=== PATIENT | female | born 1995 | race Caucasian/White ===

== ENCOUNTER 2020-07-08 21:23 | Emergency (ER) | payer BC, SELFPAY ==
[2020-07-08 22:35] LABS: Absolute Lymphocytes (CBC) 2.7 K/uL (0.7-4.9); Basophils % 0.6 % (0-1.3); Hematocrit 37.1 % (36.0-45.0); Lymphocytes % 32.7 % (15.3-44.8); RBC Red Blood Cell Count 4.23 M/uL (3.86-4.86)
[2020-07-08 22:39] LABS: Protime INR 0.93
[2020-07-08 22:57] LABS: ALT/SGPT 63 U/L (12-78); AST/SGOT 46 U/L (15-37); Albumin 3.6 g/dL (3.4-5.0); Alkaline Phosphatase 100 U/L (45-117); BUN Blood Urea Nitrogen 9 mg/dL (7-18); Bicarbonate 30 mmol/L (21-32); Bilirubin Direct < 0.1 mg/dL (0-0.2); Bilirubin Total 0.2 mg/dL (0.2-1.0); Glucose Level 117 mg/dL (74-106); Potassium 3.7 mmol/L (3.5-5.1); Protein, Total 7.5 g/dL (6.4-8.2); Sodium Level 139 mmol/L (136-145)
[2020-07-08] MEDS ORDERED: NA CHLORIDE 0.9% 1,000 ML ONE (23:40)
--- NOTE | 2020-07-09 00:31 | EDPHYS ---
Physician Documentation [facility] Name: Kati Le Age: 25 yrs Sex: Female : 1995 Arrival Date: 07/08/2020 Time: 21:28 Bed 5 Private MD: ED Physician Arielle Soni HPI: 07/08 22:47 This 25 yrs old Female presents to ER via Wheelchair with complaints of ma2 Possible Overdose. 22:47 Context: Previous OD/poisoning history: none. Associated signs and symptoms: Pertinent ma2 negatives: burning of skin, diaphoresis, diarrhea. Severity of symptoms: At their worst the symptoms were moderate in the emergency department the symptoms are unchanged. The patient has not experienced similar symptoms in the past. has been having dental pain, went to dentist today and exam and xr was wnl. she was given t4, she took 5 of them in the evening (unknown time) 300 mg each, she also took few methadona dn 3 motrin 400 mg .. has no symptoms now except dental pain . Historical: - Allergies: 21:41 No Known Allergies; ll1 - PMHx: 21:41 None; ll1 - PSHx: 21:41 None; ll1 - Immunization history:: Flu vaccine is not up to date. - Social history:: Smoking status: Patient reports the use of cigarette tobacco products, smokes one pack cigarettes per day. Patient uses alcohol, on a daily basis. - Family history:: not pertinent. ROS: 22:47 Constitutional: Negative for fever, chills, and weight loss. ma2 22:47 All other systems are negative. Exam: 22:47 Constitutional: This is a well developed, well nourished patient who is awake, alert, ma2 and in no acute distress. Head/Face: Normocephalic, atraumatic. Eyes: Pupils equal round and reactive to light, extra-ocular motions intact. Lids and lashes normal. Conjunctiva and sclera are non-icteric and not injected. Cornea within normal limits. Periorbital areas with no swelling, redness, or edema. ENT: Nares patent. No nasal discharge, no septal abnormalities noted. Tympanic membranes are normal and external auditory canals are clear. Oropharynx with no redness, swelling, or masses, exudates, or evidence of obstruction, uvula midline. Mucous membranes moist. Neck: Trachea midline, no thyromegaly or masses palpated, and no cervical lymphadenopathy. Supple, full range of motion without nuchal rigidity, or vertebral point tenderness. No Meningismus. Chest/axilla: Normal chest wall appearance and motion. Nontender with no deformity. No lesions are appreciated. Cardiovascular: Regular rate and rhythm with a normal S1 and S2. No gallops, murmurs, or rubs. Normal PMI, no JVD. No pulse deficits. Respiratory: Lungs have equal breath sounds bilaterally, clear to auscultation and percussion. No rales, rhonchi or wheezes noted. No increased work of breathing, no retractions or nasal flaring. Abdomen/GI: Soft, non-tender, with normal bowel sounds. No distension or tympany. No guarding or rebound. No evidence of tenderness throughout. Back: No spinal tenderness. No costovertebral tenderness. Full range of motion. Skin: Warm, dry with normal turgor. Normal color with no rashes, no lesions, and no evidence of cellulitis. MS/ Extremity: Pulses equal, no cyanosis. Neurovascular intact. Full, normal range of motion. Neuro: Awake and alert, GCS 15, oriented to person, place, time, and situation. Cranial nerves II-XII grossly intact. Motor strength 5/5 in all extremities. Sensory grossly intact. Cerebellar exam normal. Normal gait. Vital Signs: 21:41 BP 119 / 88; Pulse 60; Resp 17; Temp 98.5; Pulse Ox 96% ; Weight 108.86 kg; Height 5 ll1 ft. (152.40 cm); Pain 9/10; 22:30 BP 122 / 74; Pulse 89; Resp 16; Pulse Ox 98% on R/A; jb4 23:30 BP 120 / 88; Pulse 89; Resp 18; Pulse Ox 98% on R/A; jb4 21:41 Body Mass Index 46.87 (108.86 kg, 152.40 cm) ll1 MDM: 21:46 Patient medically screened. ma2 22:47 Differential diagnosis: Ingestion/exposure to tylenol polypharmacy, over medication, ma2 hypoglycemia. 07/09 00:28 Data reviewed: vital signs, nurses notes. Counseling: I had a detailed discussion with ma2 the patient and/or guardian regarding: the historical points, exam findings, and any diagnostic results supporting the discharge/admit diagnosis, the presence of at least one elevated blood pressure reading (>120/80) during this emergency department visit. Response to treatment: the patient's symptoms have markedly improved after treatment. 07/08 21:46 Order name: Acetaminophen [facility] 07/08 21:46 Order name: Basic Metabolic Panel [facility] 07/08 21:46 Order name: CBC with Diff [facility] 07/08 21:46 Order name: ETOH Level [facility] 07/08 21:46 Order name: Hepatic Function [facility] 07/08 21:46 Order name: PT-INR; Complete Time: 00:17 [facility] 07/08 21:46 Order name: Ptt, Activated; Complete Time: 00:17 [facility] 07/08 21:46 Order name: Salicylate; Complete Time: 00:17 dc2 07/08 21:46 Order name: Urine Drug Screen [facility] 07/08 21:47 Order name: Acetaminophen Level; Complete Time: 00:17 EDWA 07/08 21:47 Order name: Basic Metabolic Panel; Complete Time: 00:17 EDWA 07/08 21:47 Order name: CBC with Automated Diff; Complete Time: 00:17 EDMS 07/08 21:47 Order name: Alcohol Serum/Plasma; Complete Time: 00:17 [facility] 07/08 21:47 Order name: Liver (Hepatic) Function; Complete Time: 00:17 EDWA 07/08 21:46 Order name: EKG; Complete Time: 21:47 dc2 07/08 21:46 Order name: EKG - Nurse/Tech; Complete Time: 00:13 [facility] 07/08 21:46 Order name: IV Saline Lock; Complete Time: 00:14 [facility] 07/08 21:46 Order name: Labs collected and sent; Complete Time: 00:14 [facility] 07/08 21:46 Order name: Urine Dipstick-Ancillary (obtain specimen); Complete Time: 00:14 [facility] 07/08 22:24 Order name: Test, Serum; Complete Time: 00:17 dc2 07/09 00:14 Order name: Urine Dipstick--Ancillary (enter results) 2 07/09 00:14 Order name: Urine --Ancillary (enter results) 2 Administered Medications: 07/08 23:15 Drug: NS 0.9% 1000 ml Route: IV; Rate: 1 bolus; Site: right antecubital; jb4 07/09 00:00 Follow up: IV Status: Completed infusion; IV Intake: 1000ml jb4 Disposition: 07/09/20 00:31 Discharged to Home. Impression: Encounter for therapeutic drug level monitoring. - Condition is Stable. - Discharge Instructions: Alcohol Intoxication, [id number]. - Work release form, Medication Reconciliation Form, Thank You Letter, Antibiotic Education, Prescription Opioid Use form. - Follow up: Private Physician; When: Tomorrow; Reason: Continuance of care. Signatures: Dispatcher [employer] EDScott Read RN RN jb4 Arielle Soni MD MD ma2 Braeden Mcclain RN RN ll1 Corrections: (The following items were deleted from the chart) 07/08 22:53 21:46 Urine Test ordered. [email or web address] jb4 07/09 00:58 00:31 07/09/2020 00:31 Discharged to Home. Impression: Encounter for therapeutic drug jb4 level monitoring. Condition is Stable. Forms are Medication Reconciliation Form, Thank You Letter, Antibiotic Education, Prescription Opioid Use. Follow up: Private Physician; When: Tomorrow; Reason: Continuance of care. ma2
--- NOTE | 2020-07-09 00:31 | ER ---
Nurse's Notes [facility] Name: Kati Le Age: 25 yrs Sex: Female : 1995 Arrival Date: 07/08/2020 Time: 21:28 Bed 5 Private MD: Diagnosis: Encounter for therapeutic drug level monitoring Presentation: 07/08 21:41 Chief complaint: Patient states: Took Tylenol #3 (5 pills today), 5 large beers, 2 ll1 melatonin, and 2.5 pills of her methadone. Slurring words, but answering appropriately. States she is not suicidal. She just wanted her tooth to stop hurting. Tooth pain to left lower jaw for 2.5 weeks. Coronavirus screen: Client denies travel out of the [place] in the last 14 days. At this time, the client does not indicate any symptoms associated with coronavirus-19. Ebola Screen: Patient denies travel to an Ebola-affected area in the 21 days before illness onset. Initial Sepsis Screen: Does the patient meet any 2 criteria? No. Patient's initial sepsis screen is negative. Does the patient have a suspected source of infection? Yes: Other: tooth pain, Left lower jaw. Risk Assessment: Do you want to hurt yourself or someone else? Patient reports no desire to harm self or others. Onset of symptoms was July 08, 2020. 21:41 Method Of Arrival: Wheelchair ll1 21:41 Acuity: FREEMAN 2 ll1 Historical: - Allergies: 21:41 No Known Allergies; ll1 - PMHx: 21:41 None; ll1 - PSHx: 21:41 None; ll1 - Immunization history:: Flu vaccine is not up to date. - Social history:: Smoking status: Patient reports the use of cigarette tobacco products, smokes one pack cigarettes per day. Patient uses alcohol, on a daily basis. - Family history:: not pertinent. Screenin:00 Abuse screen: Denies threats or abuse. Nutritional screening: No deficits noted. jb4 Tuberculosis screening: No symptoms or risk factors identified. Fall Risk IV access (20 points). Gait- Impaired (20 pts.). Total Matias Fall Scale indicates Low Risk Score (25-44 pts). Fall prevention measures have been instituted. Side Rails Up X 2 Placed close to Nursing Station Frequent Obs/Assesments occuring Family Present and informed to notify staff if they need to leave bedside As available Patient and Family Educated on Fall Prevention Program and strategies. Assessment: 22:00 General: Appears in no apparent distress. comfortable, Behavior is calm, cooperative, jb4 appropriate for age. Pain: Denies pain. Neuro: Level of Consciousness is awake, obeys commands, lethargic, Oriented to person, place, time, situation. Cardiovascular: Patient's skin is warm and dry. Respiratory: Airway is patent Respiratory effort is even, unlabored, Respiratory pattern is regular, symmetrical. GI: No signs and/or symptoms were reported involving the gastrointestinal system. : No signs and/or symptoms were reported regarding the genitourinary system. EENT: No signs and/or symptoms were reported regarding the EENT system. Derm: Skin is intact, Skin is pink, warm \T\ dry. Musculoskeletal: Circulation, motion, and sensation intact. Range of motion: intact in all extremities. 23:00 Reassessment: Patient appears in no apparent distress at this time. Patient and/or jb4 family updated on plan of care and expected duration. Pain level reassessed. Patient is alert, oriented x 3, equal unlabored respirations, skin warm/dry/pink. 07/09 00:00 Reassessment: Patient appears in no apparent distress at this time. Patient and/or jb4 family updated on plan of care and expected duration. Pain level reassessed. Patient is alert, oriented x 3, equal unlabored respirations, skin warm/dry/pink. 00:39 Reassessment: Patient appears in no apparent distress at this time. Patient and/or jb4 family updated on plan of care and expected duration. Pain level reassessed. Patient is alert, oriented x 3, equal unlabored respirations, skin warm/dry/pink. Patient states feeling better. Vital Signs: 07/08 21:41 BP 119 / 88; Pulse 60; Resp 17; Temp 98.5; Pulse Ox 96% ; Weight 108.86 kg; Height 5 ll1 ft. (152.40 cm); Pain 02/06; 22:30 BP 122 / 74; Pulse 89; Resp 16; Pulse Ox 98% on R/A; jb4 23:30 BP 120 / 88; Pulse 89; Resp 18; Pulse Ox 98% on R/A; jb4 21:41 Body Mass Index 46.87 (108.86 kg, 152.40 cm) ll1 ED Course: 21:28 Patient arrived in ED. am4 21:39 Arm band placed on. ll1 21:45 Triage completed. ll1 21:46 Arielle Soni MD is Attending Physician. nj2 21:58 Scott Baldwin, RN is Primary Nurse. jb4 22:00 Patient has correct armband on for positive identification. Placed in gown. Bed in low jb4 position. Call light in reach. Side rails up X 1. pvc monitor on. Pulse ox on. NIBP on. 22:15 Initial lab(s) drawn. Inserted saline lock: 18 gauge in right antecubital area, using jb4 aseptic technique. Blood collected. 02 00:50 No provider procedures requiring assistance completed. IV discontinued, intact, jb4 bleeding controlled, No redness/swelling at site. Pressure dressing applied. Administered Medications: 07/08 23:15 Drug: NS 0.9% 1000 ml Route: IV; Rate: 1 bolus; Site: right antecubital; jb4 07/09 00:00 Follow up: IV Status: Completed infusion; IV Intake: 1000ml jb4 Intake: 00:00 IV: 1000ml; Total: 1000ml. jb4 Outcome: 00:31 Discharge ordered by . nj2 00:50 Discharged to home via wheelchair, with family. jb4 00:50 Condition: stable 00:50 Discharge instructions given to patient, family, Instructed on discharge instructions, follow up and referral plans. Demonstrated understanding of instructions, follow-up care. 00:58 Patient left the ED. jb4 Signatures: Scott Baldwin, RN RN jb4 Arielle Soni MD MD [facility] Braeden Mcclain RN RN [email or web address] Anabel Castaneda am4
[2020-07-09 00:38] LABS: Urine Blood TRACE (NEG); Urine Glucose NEGATIVE (NEG); Urine Protein NEGATIVE (NEG); Urine Specific Gravity 1.025 (1.005-1.030)
[2020-07-09 00:48] LABS: Barbiturates NEGATIVE (NEGATIVE); Benzodiazepines POSITIVE (NEGATIVE); Cocaine NEGATIVE (NEGATIVE); METHAMPHETAM NEGATIVE (NEGATIVE); Methadone POSITIVE (NEGATIVE); Opiates POSITIVE (NEGATIVE); Phencyclidine NEGATIVE (NEGATIVE); THC Cannibis NEGATIVE (NEGATIVE)
[2020-07-09 01:04] VITALS: TEMP 98.5
[2020-07-09 01:05] VITALS: O2SAT 98
[2020-07-09 01:06] VITALS: BP 120/88
--- NOTE | 2020-07-09 11:54 | EKG ---
Test Date: 2020-07-08 Test Time: 22:36:08 Floor Hand: ELOY MEASUREMENT RESULTS: Intervals: Rate: 87 WA: 150 QRSD: 90 QT: 382 QTc: 459 [place]: P: 41 WA: 150 QRS: 69 T: 49 INTERPRETIVE STATEMENTS: Normal sinus rhythm Normal ECG No previous ECG available for comparison Electronically Signed On 07-09-20 11:53:19 BUS AND RAIL OPERATOR by Raj Stahl
== END 2020-07-09 00:58 | disposition home or self-care (01) ==
LOC: ER 21:23
DX: Z51.81 Encounter for therapeutic drug level monitoring (principal); F17.210 Nicotine dependence, cigarettes, uncomplicated; K08.89 Other specified disorders of teeth and supporting structures
CPT/HCPCS: 36415; 80048; 80076; 80307; 80320; 80329; 81003; 81025; 84703; 85025; 85610; 85730; 93005; 96360; 99284; J7030

== ENCOUNTER 2020-07-12 13:42 | Emergency (ER) | payer SELFPAY ==
--- NOTE | 2020-07-12 14:18 | ER ---
Nurse's Notes [facility] Name: Kati Le Age: 25 yrs Sex: Female : 1995 Arrival Date: 07/12/2020 Time: 13:47 Bed 13 Private MD: Diagnosis: Foreign body in vulva and vagina-encounter for exam for fear of Presentation: 07/12 13:49 Chief complaint: Patient states: States she believes she has had a tampon in for 6 ll1 days. Has had vaginal discharge and bleeding for 4 days. No fever. + cramping. Coronavirus screen: Client denies travel out of the [place] in the last 14 days. At this time, the client does not indicate any symptoms associated with coronavirus-19. Ebola Screen: Patient denies travel to an Ebola-affected area in the 21 days before illness onset. Initial Sepsis Screen: Does the patient meet any 2 criteria? HR > 90 bpm. No. Patient's initial sepsis screen is negative. Does the patient have a suspected source of infection? Yes: Other: Foreign body vaginal area. Risk Assessment: Do you want to hurt yourself or someone else? Patient reports no desire to harm self or others. Onset of symptoms was July 07, 2020. 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 - Social history:: Smoking status: Patient reports the use of cigarette tobacco products, smokes one-half pack cigarettes per day. Screenin:10 Abuse screen: Denies threats or abuse. Nutritional screening: No deficits noted. vg1 Tuberculosis screening: No symptoms or risk factors identified. Fall Risk No fall in past 12 months (0 pts). No secondary diagnosis (0 pts). No IV (0 pts). Ambulatory Aid- None/Bed Rest/Nurse Assist (0 pts). Gait- Normal/Bed Rest/Wheelchair (0 pts) Mental Status- Oriented to own ability (0 pts). Total Matias Fall Scale indicates No Risk (0-24 pts). Assessment: 14:00 General: Appears in no apparent distress. comfortable, Behavior is calm, cooperative. vg1 Pain: Denies pain. Neuro: Level of Consciousness is awake, alert, obeys commands, Oriented to person, place, time, situation. Cardiovascular: Patient's skin is warm and dry. Respiratory: Airway is patent Respiratory effort is even, unlabored, Respiratory pattern is regular, symmetrical. GI: No signs and/or symptoms were reported involving the gastrointestinal system. : No signs and/or symptoms were reported regarding the genitourinary system. EENT: No signs and/or symptoms were reported regarding the EENT system. Derm: Skin is intact, is healthy with good turgor. Musculoskeletal: Circulation, motion, and sensation intact. 14:00 General: Reports 4 days ago had brownish discharge and began bleeding today. Denies vg1 pain but states has discomfort in vagina. Vital Signs: 13:49 BP 150 / 90; Pulse 92; Resp 17; Temp 97.0; Pulse Ox 98% ; Weight 108.86 kg; Height 5 ll1 ft. 7 in. (170.18 cm); Pain 0/10; 14:00 BP 128 / 77; Pulse 90; Resp 14; Pulse Ox 100% on R/A; vg1 13:49 Body Mass Index 37.59 (108.86 kg, 170.18 cm) ll1 ED Course: 13:47 Patient arrived in ED. mr 13:49 Arm band placed on Patient placed in an exam room, on a stretcher. ll1 13:51 Triage completed. ll1 13:51 Carmen Smith FNP-C is [facility]. kb 13:51 Roland Yun MD is Attending Physician. kb 14:00 Ricarda Chung, RN is Primary Nurse. vg1 14:10 Patient has correct armband on for positive identification. Placed in gown. Bed in low vg1 position. Call light in reach. Side rails up X 1. 14:27 Assist provider with pelvic exam: Performed by Carmen AGUIRRE. Patient did not vg1 have IV access during this emergency room visit. Administered Medications: No medications were administered Outcome: 14:17 Discharge ordered by . moni 14:27 Discharged to home ambulatory. vg1 14:27 Condition: stable 14:27 Discharge instructions given to patient, Instructed on discharge instructions, follow up and referral plans. Demonstrated understanding of instructions, follow-up care. 14:27 Patient left the ED. vg1 Signatures: Carmen Smith FNP-C FNP-Kamila Dow Victoria, RN RN vg1 Braeden Mcclain RN RN ll1 Corrections: (The following items were deleted from the chart) 13:52 13:49 Acuity: FREEMAN 3 ll1 ll1
--- NOTE | 2020-07-12 14:18 | EDPHYS ---
Physician Documentation [facility] Name: Kati Le Age: 25 yrs Sex: Female : 1995 Arrival Date: 07/12/2020 Time: 13:47 Bed 13 Private MD: ED Physician Roland Yun HPI: 07/12 14:53 This 25 yrs old Female presents to ER via Ambulatory with complaints of kb Foreign body In Vagina. 14:53 The patient presents with vaginal bleeding that is vaginal discharge, possible tampon kb stuck in vagina for 6 days. Onset: The symptoms/episode began/occurred yesterday. Modifying factors: The symptoms are alleviated by nothing, the symptoms are aggravated by nothing. Associated signs and symptoms: Pertinent positives: vaginal bleeding, vaginal discharge. Severity of symptoms: At their worst the symptoms were mild, in the emergency department the symptoms are unchanged. The patient has not experienced similar symptoms in the past. The patient has not recently seen a physician. 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 - Social history:: Smoking status: Patient reports the use of cigarette tobacco products, smokes one-half pack cigarettes per day. ROS: 14:52 Constitutional: Negative for fever, chills, and weight loss, Abdomen/GI: Negative for kb abdominal pain, nausea, vomiting, diarrhea, and constipation, Neuro: Negative for headache, weakness, numbness, tingling, and seizure. 14:52 : Positive for vaginal bleeding, vaginal discharge. Exam: 14:53 Constitutional: This is a well developed, well nourished patient who is awake, alert, kb and in no acute distress. Head/Face: Normocephalic, atraumatic. Abdomen/GI: Soft, non-tender, with normal bowel sounds. No distension or tympany. No guarding or rebound. No evidence of tenderness throughout. Pelvic Exam: Normal external genitalia. Speculum exam with closed cervical os, no discharge or bleeding noted. Bimanual exam with normal adnexa, no adnexal or cervical motion tenderness. Normal uterus. Female : Normal external genitalia. Skin: Warm, dry with normal turgor. Normal color with no rashes, no lesions, and no evidence of cellulitis. Neuro: Awake and alert, GCS 15, oriented to person, place, time, and situation. Cranial nerves II-XII grossly intact. Motor strength 5/5 in all extremities. Sensory grossly intact. Cerebellar exam normal. Normal gait. Vital Signs: 13:49 BP 150 / 90; Pulse 92; Resp 17; Temp 97.0; Pulse Ox 98% ; Weight 108.86 kg; Height 5 ll1 ft. 7 in. (170.18 cm); Pain 0/10; 14:00 BP 128 / 77; Pulse 90; Resp 14; Pulse Ox 100% on R/A; vg1 13:49 Body Mass Index 37.59 (108.86 kg, 170.18 cm) ll1 MDM: 13:51 Patient medically screened. kb 14:52 Data reviewed: vital signs, nurses notes. Data interpreted: Pulse oximetry: on room air kb is 100 %. Interpretation: normal. Counseling: I had a detailed discussion with the patient and/or guardian regarding: the historical points, exam findings, and any diagnostic results supporting the discharge/admit diagnosis, the need for outpatient follow up, a family practitioner, to return to the emergency department if symptoms worsen or persist or if there are any questions or concerns that arise at home. Administered Medications: No medications were administered Disposition: 07/12/20 14:17 Discharged to Home. Impression: Foreign body in vulva and vagina - encounter for exam for fear of. - Condition is Stable. - Discharge Instructions: Vaginal Foreign Body, [id number]. - Medication Reconciliation Form, Thank You Letter, Antibiotic Education, Prescription Opioid Use form. - Follow up: Emergency Department; When: As needed; Reason: Worsening of condition. Follow up: Private Physician; When: 2 - 3 days; Reason: Recheck today's complaints, Continuance of care, Re-evaluation by your physician. Addendum: 07/13/2020 14:44 Co-signature as Attending Physician, Roland Yun MD I agree with the assessment and c gomez plan of care. Signatures: Carmen Smith, SHERLY-C HEEL LAYER-Roland Escobar MD MD cha Garcia, Victoria RN RN 1 Johny, Lynsay, RN RN ll1 Corrections: (The following items were deleted from the chart) 07/12 14:27 14:17 07/12/2020 14:17 Discharged to Home. Impression: Foreign body in vulva and vagina vg1 - encounter for exam for fear of. Condition is Stable. Forms are Medication Reconciliation Form, Thank You Letter, Antibiotic Education, Prescription Opioid Use. Follow up: Emergency Department; When: As needed; Reason: Worsening of condition. Follow up: Private Physician; When: 2 - 3 days; Reason: Recheck today's complaints, Continuance of care, Re-evaluation by your physician. kb 14:53 14:53 Constitutional: This is a well developed, well nourished patient who is awake, kb alert, and in no acute distress. Head/Face: Normocephalic, atraumatic. Abdomen/GI: Soft, non-tender, with normal bowel sounds. No distension or tympany. No guarding or rebound. No evidence of tenderness throughout. Skin: Warm, dry with normal turgor. Normal color with no rashes, no lesions, and no evidence of cellulitis. Neuro: Awake and alert, GCS 15, oriented to person, place, time, and situation. Cranial nerves II-XII grossly intact. Motor strength 5/5 in all extremities. Sensory grossly intact. Cerebellar exam normal. Normal gait. kb
[2020-07-12 14:34] VITALS: TEMP 97
[2020-07-12 14:35] VITALS: BP 128/77; O2SAT 100
== END 2020-07-12 14:27 | disposition home or self-care (01) ==
LOC: ER 13:42
DX: Z71.1 Person with feared health complaint in whom no diagnosis is made (principal); F17.210 Nicotine dependence, cigarettes, uncomplicated
CPT/HCPCS: 99283

== ENCOUNTER 2022-04-23 17:59 | Emergency (ER) | payer OTHER, SELFPAY ==
--- OUTSIDE RECORDS SUMMARY | 2022-04-23 18:02 | XMS REPORT | Continuity of Care Document ---
:1995 Author Organization [facility] Address [address] [place] [address] Care Team Providers Name Role Phone Alexander Renee Primary Care Physician MICHAELLE ALVAREZ Attending Clinician Unavailable MICHAELLE ALVAREZ Attending Clinician Unavailable ZAN SALAZAR Attending Clinician Unavailable HARLEY GRAVES Attending Clinician Unavailable Doctor Unassigned, [place] Attending Clinician Unavailable [email or web address] Attending Clinician Unavailable Perez_J Admitting Clinician Unavailable Payers Payer Name Policy Type Policy Number Effective Date Expiration Date Susana moore Douban [id number] 2021 00:00:00 [facility] [id number] 2021 (PPO) 00:00:00 Problems Condition Condition Condition Status Onset Resolution Last Treating Co mments Source Name Details Category Date Date Treatment Clinician Date PCOS PCOS Disease Active 2021-05 Univers (polycysti (polycysti 06-04 [place] c ovarian c [place] syndrome[place] syndrome[place] 00 [facility] Branch Female Female Disease Active 2021-05 Univers infertilit infertilit 06-04 it y of y y 00:00: [place] associated associated 00 Me dical with with Branch anovulatio anovulatio n n Hirsutism Hirsutism Disease Active 2021-05 Uni vers 06-04 ity of 00:00: [place] 00 Medical Branch Insomnia, Insomnia, Disease Active 2021-05 Uni vers unspecifie unspecifie 06-04 it y of d type d type 00:00: [place] 00 Medical Branch Menorrhagi Menorrhagi Disease Active 2021-05 U nivers a with a with 1-06 [place] of irregular irregular [place] cycle 00 [facility] Encounter Encounter Disease Active 2021-05 Uni vers for well for well 0-13 ity of [place] exam [place] routine routine Branch gynecologi gynecologi jake exam jake exam Vaginal Vaginal Disease Active 2021-05 Univers discharge discharge 0-13 ity of 00:00: [facility] Breast Breast Disease Active 2021-05 Univers lump in lump in 0-13 ity of female female 00:00: [facility] History of History of Disease Active 2021-05 U nivers ovarian ovarian 0-13 ity of cyst cyst 00:00: [facility] BMI BMI Disease Active 2021-05 Univers 40.0-44.9, 40.0-44.9, 0-13 it y of adult adult 00:00: [address] Acute Acute Problem Active Common vaginitis vaginitis Spir it [facility] Chlamydia Chlamydia Diagnosis Active C ommon contact contact [facility] Dysuria Dysuria Diagnosis Active Commo n [facility] Encounter Encounter Problem Active Com mon for for Spirit screening screening - CH I for for St infections infections Jessica kes with with Medical predominan predominan Ce nter tly sexual tly sexual mode of mode of transmissi transmissi on on Allergies, Adverse Reactions, Alerts Allergy Allergy Status Severity Reaction(s) Onset Inactive Treating Comm ents Source Name Type Date Date Clinician NO KNOWN Drug Active Univers ALLERGIE Class ity of [facility] Social History Social Habit Start Date Stop Date Quantity Comments Source Alcohol intake 2022-04-04 2022-04-04 Lifetime University of 00:00:00 00:00:00 non-drinker [facility] (finding) [place] Exposure to 2022-03-05 2022-03-15 Not sure [facility] SARS-CoV-2 00:00:00 08:28:00 [facility] (event) [place] Tobacco use and 2022-03-11 2022-03-11 Smokeless tobacco Un iversity of exposure 00:00:00 00:00:[address] [facility] Sex Assigned At [birth year] Universit y of 00:00:00 00:00:00 [place] [facility] [place] Smoking Status Start Date Stop Date Source Tobacco smoking consumption [facility] Branch Never smoked tobacco [facility] Medications Ordered Filled Start Stop Current Ordering Indication Dosage Frequency Signature Comments Components Source Medication Medication Date Date Medication? Clinician (SIG) Name Name LOHASMUKH SANTOS 2021-05 Yes [id number] 1{tbl} Take 1 Univers (BLISOVI FE 1-06 tablet by ity of ,) 00:00: mouth in [place] 1 mg-20 mcg 00 the Medical (21)/75 mg morning. Branc h (7) tablet LOESTRIN FE 2021-05 Yes [id number] 1{tbl} Take 1 Univers (BLISOVI FE 1-06 tablet by ity of ,) 00:00: mouth in [place] 1 mg-20 mcg 00 the Medical (21)/75 mg morning. Branc h (7) tablet LOESTRIN FE 2021-05 Yes [id number] 1{tbl} Take 1 Univers (BLISOVI FE 1-06 tablet by ity of ,) 00:00: mouth in [place] 1 mg-20 mcg 00 the Medical (21)/75 mg morning. Branc h (7) tablet LOESTRIN FE 2021-05 Yes [id number] 1{tbl} Take 1 Univers (BLISOVI FE 1-06 tablet by ity of ,) 00:00: mouth in [place] 1 mg-20 mcg 00 the Medical (21)/75 mg morning. Branc h (7) tablet metroNIDAZO 2021-05- Yes [id number] 500mg Take 1 Univers LE 500 mg 0-17 10-25 tablet by ity of tablet 00:00: 04:59 mouth [place] 00 :00 every 12 Medical (twelve) Branch hours for 7 days. metroNIDAZO 2021-05- Yes [id number] 500mg Take 1 Univers LE 500 mg 0-17 10-25 tablet by ity of tablet 00:00: 04:59 mouth [place] 00 :00 every 12 Medical (twelve) Branch hours for 7 days. metroNIDAZO 2021-05- Yes [id number] 500mg Take 1 Univers LE 500 mg 0-17 10-25 tablet by ity of tablet 00:00: 04:59 mouth [place] 00 :00 every 12 Medical (twelve) Branch hours for 7 days. metroNIDAZO 2021-05- Yes [id number] 500mg Take 1 Univers LE 500 mg 0-17 10-25 tablet by ity of tablet 00:00: 04:59 mouth [place] 00 :00 every 12 Medical (twelve) Branch hours for 7 days. metroNIDAZO 2021-05- Yes [id number] 500mg Take 1 Univers LE 500 mg 0-17 10-25 tablet by ity of tablet 00:00: 04:59 mouth [place] 00 :00 every 12 Medical (twelve) Branch hours for 7 days. metroNIDAZO 2021-05- Yes [id number] 500mg Take 1 Univers LE 500 mg 0-17 10-25 tablet by ity of tablet 00:00: 04:59 mouth [place] 00 :00 every 12 Medical (twelve) Branch hours for 7 days. QUEtiapine 2021-05 Yes 1{tbl} Take 1 Uni vers (SEROQUEL) 0-13 tablet by ity of 300 mg 13:44: mouth. [address] QUEtiapine 2021-05 Yes 1{tbl} Take 1 Uni vers (SEROQUEL) 0-13 tablet by ity of 300 mg 13:44: mouth. [address] QUEtiapine 2021-05 Yes 1{tbl} Take 1 Uni vers (SEROQUEL) 0-13 tablet by ity of 300 mg 13:44: mouth. [address] QUEtiapine 2021-05 Yes 1{tbl} Take 1 Uni vers (SEROQUEL) 0-13 tablet by ity of 300 mg 13:44: mouth. [address] QUEtiapine 2021-05 Yes 1{tbl} Take 1 Uni vers (SEROQUEL) 0-13 tablet by ity of 300 mg 13:44: mouth. [address] QUEtiapine 2021-05 Yes 1{tbl} Take 1 Uni vers (SEROQUEL) 0-13 tablet by ity of 300 mg 13:44: mouth. [address] QUEtiapine 2021-05 Yes 1{tbl} Take 1 Uni vers (SEROQUEL) 0-13 tablet by ity of 300 mg 13:44: mouth. [place] tablet 24 Medical Branch QUEtiapine 2021-05 Yes 1{tbl} Take 1 Uni vers (SEROQUEL) 0-13 tablet by ity of 300 mg 13:44: mouth. [place] tablet 24 Medical Branch QUEtiapine 2021-05 Yes 1{tbl} Take 1 Uni vers (SEROQUEL) 0-13 tablet by ity of 300 mg 13:44: mouth. [place] tablet 24 Medical Branch QUEtiapine 2021-05 Yes 1{tbl} Take 1 Uni vers (SEROQUEL) 0-13 tablet by ity of 300 mg 13:44: mouth. [place] tablet 24 Medical Branch QUEtiapine 2021-05 Yes 1{tbl} Take 1 Uni vers (SEROQUEL) 0-13 tablet by ity of 300 mg 13:44: mouth. [place] tablet 24 Medical Branch QUEtiapine 2021-05 Yes 1{tbl} Take 1 Uni vers (SEROQUEL) 0-13 tablet by ity of 300 mg 13:44: mouth. [place] tablet 24 Medical Branch QUEtiapine 2021-05 Yes 1{tbl} Take 1 Uni vers (SEROQUEL) 0-13 tablet by ity of 300 mg 13:44: mouth. [place] tablet 24 Medical Branch QUEtiapine 2021-05 Yes 1{tbl} Take 1 Uni vers (SEROQUEL) 0-13 tablet by ity of 300 mg 13:44: mouth. [place] tablet [address] [place] [address] Azithromyci Azithromyci 2017-0 2018- No Toribio 2 tablet s Common n n 09-20 [facility] 00:00: 00:00 - [facility] 00 :00 [facility] Flagyl Flagyl Yes Toribio 1 tablet Co mmon Stefanyi [facility] - [facility] Vital Signs Vital Name Observation Time Observation Value Comments Source Systolic blood 2022-04-01 17:54:00 126 mm[Hg] Univer sity of pressure [facility] Diastolic blood 2022-04-01 17:54:00 81 mm[Hg] Unive rsity of pressure [facility] Heart rate 2022-04-01 17:54:00 84 /min Universi ty of [facility] Body temperature 2022-04-01 17:54:00 36.89 Ivelisse [facility] ersity of [place] [facility] [place] Respiratory rate 2022-04-01 17:54:00 16 /min Univ ersity of [facility] [place] [facility] [place] Body height 2022-04-01 17:54:00 165.1 cm Universi ty of [facility] [place] [facility] [place] Body weight 2022-04-01 17:54:00 119.886 kg Universi ty of [facility] [place] BMI 2022-04-01 17:54:00 43.98 kg/m2 Universi ty of [place] [facility] [place] Oxygen saturation in 2022-04-01 17:54:00 98 /min University of Arterial blood by [facility] Pulse oximetry Branch Systolic blood 2022-03-11 18:43:00 119 mm[Hg] Univer sity of [facility] Diastolic blood 2022-03-11 18:43:00 83 mm[Hg] [facility] Heart rate 2022-03-11 18:43:00 87 /min Universi ty of [place] [facility] [place] Body temperature 2022-03-11 18:43:00 36.72 Ivelisse [facility] ersity of [place] [facility] [place] Respiratory rate 2022-03-11 18:43:00 16 /min [facility] ersity of [place] [facility] [place] Body height 2022-03-11 18:43:00 165.1 cm Universi ty of [place] [facility] [place] Body weight 2022-03-11 18:43:00 116.529 kg Universi ty of [place] [facility] BMI 2022-03-11 18:43:00 42.75 kg/m2 Universi ty of [place] [facility] [place] Oxygen saturation in 2022-03-11 18:43:00 96 /min University of Arterial blood by [facility] Pulse oximetry Branch Procedures Procedure Date / Time Performing Clinician Source Performed EXTERNAL PROVIDER 2022-04-21 06:01:00 Doctor Unassigned, No Univ [facility] RECORDS Name Medical Branch BI US GUIDED CORE 2022-04-01 15:31:04 Michaelle Alvarez [facility] BREAST BIOPSY RIGHT Medical Bran ch US PELVIS COMPLETE WITH 2022-03-18 19:00:00 Michaelle Alvarez [facility] TRANSVAGINAL [facility] BI ULTRASOUND BREAST 2022-03-18 16:56:11 Michaelle Alvarez [facility] COMPLETE RIGHT Medical Branch CONSENT/REFUSAL FOR 2022-03-11 18:15:29 Doctor Unassigned, No [facility] DIAGNOSIS AND TREATMENT Name [facility] ASSIGNMENT OF BENEFITS 2022-03-11 18:15:14 Doctor Unassigned, No [facility] Name [facility] Encounters Start End Encounter Admission Attending Care Care Encounter Source Date/Time Date/Time Type Type Clinicians Facility Department ID 2022-04-26 2022-04-26 Outpatient R ELY [facility] [id number] Univers 15:15:00 15:15:[address] [facility] 2022-04-21 2022-04-21 Orders Doctor JUAREZ 1.2.840.114 [id number] Univers 00:00:00 00:00:00 Only Unassigned, AYO 350.1.13.10 ity of [place] [facility] 4.2.7.2.686 [place] [id number] [place] [address] Branch 2022-04-08 2022-04-08 Telephone [facility] 1.2.840.11 [id number] Univers 00:00:00 00:00:00 Michaelle POSEY 350.1.13.10 it y of [place] 4[place]2.686 [place] [id number] [facility] 134 Branch 2022-04-01 2022-04-01 Outpatient R MICHAELLE ALVAREZ [facility] B [id number] Univers 09:02:15 23:59:00 MICHAELLE ALVAREZ [facility] 2022-04-01 2022-04-01 [facility] 1.2.840.114 [id number] Univers 09:02:15 23:59:00 Encounter Michaelle THOMPSON 350.1.13.10 ity of [place] AT [id number] Ma edward PINON 800 [facility] 2022-04-01 2022-04-01 Office [facility] 1.2.840.114 [id number] Univers 13:30:00 13:30:00 Visit Michaelle POSEY 350.1.13.10 it y of [place] 4[place]2.[place] [id number] [facility] 134 Branch 2022-03-18 2022-03-18 Outpatient R MICHAELLE ALVAREZ [facility] B [id number] Univers 13:22:30 23:59:00 TARIMICHAELLE DEL VALLE ity of [facility] 2022-03-18 2022-03-18 [facility] 1.2.840.114 [id number] Univers 13:05:06 23:59:00 Encounter Michaelle BANEGASJEANIE 350.1.13.10 ity of [place] 4.2.7.2.686 [facility] [id number] [facility] 806 [place] 2022-03-18 2022-03-18 [facility] 1.2.840.114 [id number] Univers 10:00:00 13:04:00 Encounter Michaelle JAY 350.1.13.10 ity of CARE 4.2.7.2.686 [facility] AT [id number] Ma edward PINON 800 [facility] 2022-03-18 2022-03-18 [facility] 1.2.840.114 [id number] Univers 00:00:00 00:00:00 Management Michaelle POSEY 350.1.13.10 ity of WOMEN'S 4.2.[address] [facility] [id number] [address] 2022-03-17 2022-03-17 Telephone [facility] 1.2.840.11 [id number] Univers 00:00:00 00:00:00 Michaelle KALPESH 350.1.13.10 it y of PEDI[place].2.[place] [id number] [address] 2022-03-15 2022-03-15 Case [facility] 1.2.840.114 [id number] Univers 00:00:00 00:00:00 Management Michaelle POSEY 350.1.13.10 ity of WOMEN'S 4.2.7.[address] [facility] [id number] [address] 2022-03-152022-03-15 Telephone [place] [facility] 1.2.840.11 [id number] Univers 00:00:00 00:00:00 Michaelle POSEY 350.1.13.10 it y of [place] 4[place].2.[place] [id number] [address] 2022-03-12 2022-03-12 Case [place] [facility] 1.2.840.114 [id number] Univers 00:00:00 00:00:00 Management Michaelle POSEY 350.1.13.10 ity of [place] 4.2.7.2.[place] [id number] [address] 2022-03-11 2022-03-11 Office [place] [facility] 1.2.840.114 [id number] Univers 13:30:00 14:04:14 Visit Michaelle POSEY 350.1.13.10 it y of [place] 4[place]2.7.2.[place] [id number] [address] 2022-03-11 2022-03-11 Outpatient R ANTONIO MICHAELLE [facility] B [id number] Univers 13:30:00 14:04:14 ANTONIO LEONARDOTUNG ity [facility] 2022-03-11 2022-03-11 Orders Doctor ANN 1.2.840.114 [id number] Univers 00:00:00 00:00:00 Only Unassigned, AYO 350.1.13.10 ity of [place] [facility] 4.2.7.2.686 [place] [id number] [address] 2021-10-19 2021-10-19 Outpatient GC_SWHAOMC_ PRIV PRIV [id number] [facility] 05:43:00 05:43:00 Bob [id number] Medic al 2021-10-19 2021-10-19 Outpatient GC_SWHAOMC_ PRIV PRIV 241 [id number] [facility] 05:43:00 05:43:00 Bob [id number] Medic al 2021-10-19 2021-10-19 Outpatient GC_SWHAOMC_ PRIV PRIV 241 [id number] [facility] 05:43:00 05:43:00 Bob [id number] Medic al 2021-10-12 2021-10-12 Outpatient GC_SWHAOMC_ PRIV PRIV 241 [id number] [facility] 05:02:00 05:02:00 Bob [id number] Medic al 2017-09-20 2017-09-20 Outpatient Maycol Severinot [id number] Common 10:00:00 10:00:00 [facility] - I Clinic [facility] Results This patient has no known results.
[2022-04-23 19:10] LABS: Urine Blood Trace-lysed (Negative); Urine Glucose Negative (Negative); Urine Protein Trace (Negative); Urine Specific Gravity >=1.030 (1.005-1.030); Urine pH 6.5 (5.0-7.0)
[2022-04-23 19:42] LABS: Urine Specific Gravity/Preg >1.030 (1.005-1.030)
[2022-04-23 20:07] LABS: Absolute Lymphocytes (CBC) 2.3 K/uL (0.7-4.9); Hematocrit 42.3 % (36.0-45.0); Lymphocytes % 22.1 % (15.3-44.8); MCV 92.2 fL (80-100); MPV 7.6 fL (7.6-11.3); RBC Red Blood Cell Count 4.59 M/uL (3.86-4.86)
[2022-04-23 20:26] LABS: Potassium 3.4 mmol/L (3.5-5.1)
--- NOTE | 2022-04-23 21:08 | RAD REPORT ---
EXAM DESCRIPTION: US - Transvaginal OB - 04/23/2022 8:58 pm CLINICAL HISTORY: with vaginal bleeding COMPARISON: None. FINDINGS: The uterus measures 7 x 3 x 5 centimeters. The endometrial stripe measures 11 millimeters . A gestational sac is not seen. Right ovary normal in size and echotexture. Left ovary not seen secondary to overlying bowel gas The right and left adnexa unremarkable No significant free fluid IMPRESSION: Nonvisualization of a gestational sac within the endometrium. These findings could represent an early intrauterine in which the gestational sac is not se en. and even an ectopic can also result in this appearance. This all should be cor related clinically and with serial beta HCG levels. Followup endovaginal sonogram in 1 week recommend ed
--- NOTE | 2022-04-23 21:42 | EDPHYS ---
Physician Documentation [facility] [place] Name: Kati Le Age: 27 yrs Sex: Female : 1995 Arrival Date: 04/23/2022 Time: 18:06 Bed 19 Private MD: ED Physician Jose Juarez HPI: 04/23 19:04 This 27 yrs old Female presents to ER via Ambulatory with complaints of Vaginal snw Bleeding, + Preg <12wks. 19:04 The patient presents with vaginal bleeding that is spotting. Onset: The snw symptoms/episode began/occurred acutely, 1 day(s) ago, and became persistent. Associated signs and symptoms: Pertinent positives: cramping. Severity of symptoms: At their worst the symptoms were very mild. The patient has experienced a previous episode. The patient has not recently seen a physician. 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 - Social history:: Smoking status: Patient denies any tobacco usage or history of. ROS: 19:03 Constitutional: Negative for fever, chills, and weight loss, Eyes: Negative for injury, snw pain, redness, and discharge, ENT: Negative for injury, pain, and discharge, Neck: Negative for injury, pain, and swelling, Cardiovascular: Negative for chest pain, palpitations, and edema, Respiratory: Negative for shortness of breath, cough, wheezing, and pleuritic chest pain, Abdomen/GI: Negative for abdominal pain, nausea, vomiting, diarrhea, and constipation, Back: Negative for injury and pain, : Negative for injury, discharge, and swelling, low abdominal cramping, vaginal spotting. LMP 03/26/22, + preg test 2 days ago. MS/Extremity: Negative for injury and deformity, Skin: Negative for injury, rash, and discoloration, Neuro: Negative for headache, weakness, numbness, tingling, and seizure. Exam: 19:03 Constitutional: This is a well developed, well nourished patient who is awake, alert, snw and in no acute distress. Head/Face: Normocephalic, atraumatic. Eyes: Pupils equal round and reactive to light, extra-ocular motions intact. Lids and lashes normal. Conjunctiva and sclera are non-icteric and not injected. Cornea within normal limits. Periorbital areas with no swelling, redness, or edema. ENT: Nares patent. No nasal discharge, no septal abnormalities noted. Tympanic membranes are normal and external auditory canals are clear. Oropharynx with no redness, swelling, or masses, exudates, or evidence of obstruction, uvula midline. Mucous membranes moist. Neck: Trachea midline, no thyromegaly or masses palpated, and no cervical lymphadenopathy. Supple, full range of motion without nuchal rigidity, or vertebral point tenderness. No Meningismus. Chest/axilla: Normal chest wall appearance and motion. Nontender with no deformity. No lesions are appreciated. Cardiovascular: Regular rate and rhythm with a normal S1 and S2. No gallops, murmurs, or rubs. Normal PMI, no JVD. No pulse deficits. Respiratory: Lungs have equal breath sounds bilaterally, clear to auscultation and percussion. No rales, rhonchi or wheezes noted. No increased work of breathing, no retractions or nasal flaring. Abdomen/GI: Soft, non-tender, with normal bowel sounds. No distension or tympany. No guarding or rebound. No evidence of tenderness throughout. Back: No spinal tenderness. No costovertebral tenderness. Full range of motion. Skin: Warm, dry with normal turgor. Normal color with no rashes, no lesions, and no evidence of cellulitis. MS/ Extremity: Pulses equal, no cyanosis. Neurovascular intact. Full, normal range of motion. Neuro: Awake and alert, GCS 15, oriented to person, place, time, and situation. Cranial nerves II-XII grossly intact. Motor strength 5/5 in all extremities. Sensory grossly intact. Cerebellar exam normal. Normal gait. Vital Signs: 18:20 BP 148 / 92; Pulse 96; Resp 16; Temp 98.0; Pulse Ox 100% on R/A; Weight 117.93 kg; hb Height 5 ft. 7 in. (170.18 cm); Pain 3/10; 19:37 BP 149 / 91; Pulse 90; Resp 16 S; Pulse Ox 100% on R/A; ha1 20:30 BP 145 / 90; Pulse 90; Resp 15 S; Pulse Ox 100% on R/A; ha1 21:30 BP 140 / 90; Pulse 90; Resp 18 S; Pulse Ox 99% on R/A; ha1 22:30 BP 140 / 87; Pulse 87; Resp 18 S; Pulse Ox 99% on R/A; ha1 18:20 Body Mass Index 40.72 (117.93 kg, 170.18 cm) hb MDM: 18:26 Patient medically screened. manuel 21:40 Differential diagnosis: ectopic . Data reviewed: vital signs, nurses notes, chief learning officer test result(s), radiologic studies, ultrasound, and as a result, I will discharge patient. Counseling: I had a detailed discussion with the patient and/or guardian regarding: the historical points, exam findings, and any diagnostic results supporting the discharge/admit diagnosis, lab results, radiology results, the need for outpatient follow up, to return to the emergency department if symptoms worsen or persist or if there are any questions or concerns that arise at home. Special discussion: I discussed with the patient/guardian in detail that at this point there is no indication for admission to the hospital. It is understood, however, that if the symptoms persist or worsen the patient needs to return immediately for re-evaluation. Based on the history and exam findings, there is no indication for further emergent testing or inpatient evaluation. I discussed with the patient/guardian the need to see the OB Gyne specialist for further evaluation of the symptoms. ED course: Rh negative, will give RhoGAM, told to f/u or return in 48 hours for repeat hcg. Possibly too early, but ultrasound does not show anything in adnexa. Return precautions given and understood. . 04/23 18:15 Order name: Abo/rh Typing; Complete Time: 22:29 snw 04/23 18:15 Order name: Basic Metabolic Panel; Complete Time: 20:57 snw 04/23 18:15 Order name: CBC with Diff; Complete Time: 20:11 snw 04/23 18:15 Order name: Quantitative Hcg; Complete Time: 20:57 snw 04/23 19:10 Order name: Urine Dipstick-Ancillary; Complete Time: 19:12 EDMS 04/23 19:19 Order name: Urine --Ancillary (enter results); Complete Time: 19:44 em1 04/23 18:15 Order name: IV Saline Lock; Complete Time: 19:46 snw 04/23 19:49 Order name: US Transvaginal Ob; Complete Time: 21:29 snw 04/23 21:41 Order name: Rh Typing; Complete Time: 22:29 EDMS 04/23 21:41 Order name: Antibody Screen; Complete Time: 22:29 EDMS 04/23 21:41 Order name: Fetalscreen EDOK 04/23 21:41 Order name: Cord Rh type EDOK 04/23 21:41 Order name: Rhogam EDOK 04/23 18:15 Order name: Labs collected and sent; Complete Time: 19:46 snw 04/23 18:15 Order name: NPO; Complete Time: 19:17 snw 04/23 18:15 Order name: Urine Dipstick-Ancillary (obtain specimen); Complete Time: 19:46 snw 04/23 18:15 Order name: Urine Test (obtain specimen); Complete Time: 19:17 snw Administered Medications: 22:32 Drug: RhoGAM (Human) 300 mcg Route: IM; Site: left ventrogluteal; ha1 22:48 Follow up: Response: No adverse reaction ha1 Disposition: 23:18 Co-signature as Attending Physician, Jose Juarez MD. rn Disposition Summary: 04/23/22 21:41 Discharge Ordered Location: Home rn Problem: new rn Symptoms: have improved rn Condition: Stable rn Diagnosis - Threatened rn Followup: rn - With: Private Physician - When: 48 Hours - Reason: Recheck today's complaints, Repeat Beta-HCG (48 Hours), Re-evaluation by your physician Discharge Instructions: - Discharge Summary Sheet rn - Care rn - Threatened Miscarriage rn - Vaginal Bleeding During , First Trimester rn Forms: - Medication Reconciliation Form rn - Thank You Letter rn - Antibiotic digital intern - Prescription Opioid Use rn Signatures: Dispatcher [employer] Roland Culp MD MD cha Waters, Shelly, TAKE UP OPERATOR-C TAKE UP OPERATOR-Csnw Jose Juarez MD MD rn Baxter, Heather, RN Cely Reyna, RN RN ha1
--- NOTE | 2022-04-23 21:42 | ER ---
Nurse's Notes [facility] Name: Kati Le Age: 27 yrs Sex: Female : 1995 Arrival Date: 04/23/2022 Time: 18:06 Bed 19 Private MD: Diagnosis: Threatened Presentation: 04/23 18:20 Chief complaint: Spotty vaginal bleeding and abdominal cramping since this afternoon, hb reports recent positive home test. LMP 03/19, . Coronavirus screen: At this time, the client does not indicate any symptoms associated with coronavirus-19. Ebola Screen: No symptoms or risks identified at this time. Initial Sepsis Screen: Does the patient meet any 2 criteria? No. Patient's initial sepsis screen is negative. Does the patient have a suspected source of infection? No. Patient's initial sepsis screen is negative. Risk Assessment: Do you want to hurt yourself or someone else? Patient reports no desire to harm self or others. Onset of symptoms was April 23, 2022. 18:20 Method Of Arrival: Ambulatory hb 18:20 Acuity: FREEMAN 3 hb Triage Assessment: 18:22 General: Appears in no apparent distress. Behavior is calm, cooperative. Neuro: Level hb of Consciousness is awake, alert, obeys commands, Oriented to person, place, time, situation. Cardiovascular: Patient's skin is warm and dry. Respiratory: Respiratory effort is even, unlabored, Respiratory pattern is regular, symmetrical. 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 - Social history:: Smoking status: Patient denies any tobacco usage or history of. Screenin:36 Abuse screen: Denies threats or abuse. Denies injuries from another. Nutritional ha1 screening: No deficits noted. Tuberculosis screening: No symptoms or risk factors identified. Fall Risk None identified. Assessment: 19:33 General: Appears comfortable, Behavior is calm, cooperative. Pain: Denies pain. Neuro: ha1 Level of Consciousness is awake, alert, obeys commands, Oriented to person, place, time, situation. Cardiovascular: Capillary refill < 3 seconds Patient's skin is warm and dry. Respiratory: Airway is patent Trachea midline Respiratory effort is even, unlabored, Respiratory pattern is regular, symmetrical, Breath sounds are clear bilaterally. GI: Abdomen is round non-distended, Bowel sounds present X 4 quads. : Reports vaginal bleeding that is spotty. EENT: No deficits noted. No signs and/or symptoms were reported regarding the EENT system. Derm: No signs and/or symptoms reported regarding the dermatologic system. Skin is healthy with good turgor, Skin is pink, warm \T\ dry. Musculoskeletal: Circulation, motion, and sensation intact. Range of motion: intact in all extremities. 20:30 Reassessment: Patient and/or family updated on plan of care and expected duration. Pain ha1 level reassessed. Patient is alert, oriented x 3, equal unlabored respirations, skin warm/dry/pink. Patient denies pain at this time. 21:30 Reassessment: Patient and/or family updated on plan of care and expected duration. Pain ha1 level reassessed. Patient is alert, oriented x 3, equal unlabored respirations, skin warm/dry/pink. Patient denies pain at this time. 21:50 Reassessment: Patient and/or family updated on plan of care and expected duration. Pain ha1 level reassessed. Patient is alert, oriented x 3, equal unlabored respirations, skin warm/dry/pink. awaiting for Rhogam Patient denies pain at this time. 22:32 Reassessment: Patient and/or family updated on plan of care and expected duration. Pain ha1 level reassessed. Patient is alert, oriented x 3, equal unlabored respirations, skin warm/dry/pink. all indicated pt. paper work related to RhoGAM given to pt. Patient denies pain at this time. 22:53 Reassessment: provided pt. education about following up care. ha1 Vital Signs: 18:20 BP 148 / 92; Pulse 96; Resp 16; Temp 98.0; Pulse Ox 100% on R/A; Weight 117.93 kg; hb Height 5 ft. 7 in. (170.18 cm); Pain 3/10; 19:37 BP 149 / 91; Pulse 90; Resp 16 S; Pulse Ox 100% on R/A; ha1 20:30 BP 145 / 90; Pulse 90; Resp 15 S; Pulse Ox 100% on R/A; ha1 21:30 BP 140 / 90; Pulse 90; Resp 18 S; Pulse Ox 99% on R/A; ha1 22:30 BP 140 / 87; Pulse 87; Resp 18 S; Pulse Ox 99% on R/A; ha1 18:20 Body Mass Index 40.72 (117.93 kg, 170.18 cm) hb ED Course: 18:06 Patient arrived in ED. as 18:11 Madelyn Figueroa FNP-C is PHCP. snw 18:14 Roland Yun MD is Attending Physician. snw 18:22 Triage completed. hb 18:23 Arm band placed on. hb 18:52 Tiffanie Son, RN is Primary Nurse. ko1 19:37 Patient has correct armband on for positive identification. Placed in gown. Bed in low ha1 position. Call light in reach. Side rails up X 1. 19:46 Inserted saline lock: 22 gauge in right antecubital area, using aseptic technique. kr3 Blood collected. 19:47 Abo/rh Typing Sent. kr3 19:47 Basic Metabolic Panel Sent. kr3 19:47 CBC with Diff Sent. kr3 19:47 Quantitative Hcg Sent. kr3 20:11 Attending Physician role handed off by Roland Yun MD rn 20:11 Jose Juarez MD is Attending Physician. rn 20:59 Notified ED physician of other Ultrasound called No sac seen, but states that may be tw5 because patient is too early. 21:00 US Transvaginal Ob In Process Unspecified. EDMS 22:48 No provider procedures requiring assistance completed. IV discontinued, intact, ha1 bleeding controlled, No redness/swelling at site. Pressure dressing applied. Administered Medications: 22:32 Drug: RhoGAM (Human) 300 mcg Route: IM; Site: left ventrogluteal; ha1 22:48 Follow up: Response: No adverse reaction ha1 Medication: 22:54 VIS not applicable for this client. ha1 Outcome: 21:41 Discharge ordered by . rn 22:54 Discharged to home ambulatory, with family. ha1 22:54 Condition: stable 22:54 Discharge instructions given to patient, family, Instructed on discharge instructions, follow up and referral plans. Demonstrated understanding of instructions, follow-up care. 22:54 Patient left the ED. ha1 Signatures: Dispatcher [employer] EDMadelyn Chávez, NECK PINNER-C NECK PINNER-Csnw Odalys Castaneda Roman, MD MD rn Baxter, Heather, RN RN hb Celia Urbinay tw5 Cely Banegas RN RN ha1 Angelica Vogel RN RN kr3 Tiffanie Son RN RN ko1 Corrections: (The following items were deleted from the chart) 22:53 22:34 Reassessment: Patient and/or family updated on plan of care and expected ha1 duration. Pain level reassessed. Patient is alert, oriented x 3, equal unlabored respirations, skin warm/dry/pink. awaiting for monitoring after RhoGAM administration Patient denies pain at this time. ha1
[2022-04-23 22:58] VITALS: TEMP 98
[2022-04-23 23:02] VITALS: O2SAT 99
[2022-04-23 23:03] VITALS: BP 140/87
== END 2022-04-23 22:54 | disposition home or self-care (01) ==
LOC: ER 17:59
DX: O20.0 Threatened abortion (principal)
CPT/HCPCS: 85025; 80048; 36415; 86900; 86850; 81025; 85461; 86901 ×2; 84702; 81003; 76817; 96372; 99284; J2790